=== PATIENT | male | born 2000 | race Caucasian/White ===

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

== ENCOUNTER 2023-02-19 18:28 | Emergency (ER) | payer BC ==
[~2023-02-19] VITALS: Ht 170.2 cm; Wt 63.6 kg
[2023-02-19 21:02] VITALS: BP 138/94; PULSE 72; TEMP 98.3
== END 2023-02-19 21:02 | disposition home or self-care (01) ==
LOC: COL.ER 18:28
DX: M24.411 Recurrent dislocation, right shoulder (principal); Z87.828 Personal history of other (healed) physical injury and trauma; Z98.890 Other specified postprocedural states; X58.XXXA Exposure to other specified factors, initial encounter; Y92.310 Basketball court as the place of occurrence of the external cause; Y93.67 Activity, basketball
CPT/HCPCS: J2060; J3010

== ENCOUNTER → 2023-12-12 | Outpatient (CLI) | payer BC ==
[~2023-12-12] MED LIST: Gadoterate 5 ML VIAL IV ONE; Iohexol 300 - 10 ML VIAL IV ONE
== END ==
LOC: COL.RAD 07:53
DX: M21.921 Unspecified acquired deformity of right upper arm (principal); M25.311 Other instability, right shoulder; Z98.890 Other specified postprocedural states
CPT/HCPCS: A9575; Q9967

== ENCOUNTER → 2024-01-18 | Outpatient (CLI) | payer BC | LOC: COL.RAD 14:32 | DX: M25.311 Other instability, right shoulder (principal) ==

== ENCOUNTER 2024-03-09 15:33 | Emergency (ER) | payer BC ==
[~2024-03-09] VITALS: Ht 172.7 cm; Wt 63.6 kg
[2024-03-09] MEDS ORDERED: fentaNYL 50 MCG/ML 2 ML VIAL IV ONE (15:45)
[2024-03-09] MEDS ORDERED: Midazolam 2 MG/2 ML VIAL IV ONE (16:36)
[2024-03-09] MEDS ORDERED: NS 1,000 ML IV ONE (16:37)
[2024-03-09] MEDS ORDERED: Home HYDROcodone/Acetaminophen 5/325 MG #4 TABS/PACK PO ONE (17:15)
[2024-03-09 17:44] VITALS: BP 120/88; PULSE 84; TEMP 98.6
== END 2024-03-09 17:44 | disposition home or self-care (01) ==
LOC: COL.ER 15:33
DX: M24.411 Recurrent dislocation, right shoulder (principal)
CPT/HCPCS: J2250; J2704; J3010; J7030